=== PATIENT | male | born 1935 | race Caucasian/White ===

== ENCOUNTER 2021-12-26 16:57 | Emergency (ER) | payer MEDICARE, BC ==
[2021-12-26 19:47] VITALS: BP 154/89; PULSE 50
== END 2021-12-26 19:55 | disposition home or self-care (01) ==
LOC: DL.ED 16:57
DX: S80.01XA Contusion of right knee, initial encounter (principal); M25.461 Effusion, right knee; I25.10 Atherosclerotic heart disease of native coronary artery without angina pectoris; Z88.8 Allergy status to other drugs, medicaments and biological substances; Z79.82 Long term (current) use of aspirin; Z79.02 Long term (current) use of antithrombotics/antiplatelets; X50.1XXA Overexertion from prolonged static or awkward postures, initial encounter
CPT/HCPCS: 73562-RT; 99283